=== PATIENT | male | born 1975 | race African-American/Black ===

== ENCOUNTER 2021-12-14 19:35 | Inpatient (IN) | payer MEDICAID, OTHER ==
[~2021-12-14] VITALS: Ht 172.7 cm; Wt 72.3 kg
[~2021-12-14 19:35] MED LIST: DICL100G51 TP; ESCI-8 PO; MELO-381 PO; QUET200T PO
[2021-12-14 20:02] LABS: BASOPHILS % (AUTO) 0.5 % (0.0-2.0); EOSINOPHILS % (AUTO) 0.2 % (1.0-6.0); HEMATOCRIT 38.6 % (41-53); HEMOGLOBIN 12.6 g/dL (13.5-17.5); LYMPHOCYTES # (AUTO) 2.4 K/uL (1.0-4.8); LYMPHOCYTES % (AUTO) 21.3 % (22.0-44.0); MEAN CORPUSCULAR HEMOGLOBIN 26.7 pg (26.0-34.0); MEAN CORPUSCULAR HGB CONC 32.7 G/dL (31.0-37.0); MEAN CORPUSCULAR VOLUME 82 fL (80-100); MONOCYTES # (AUTO) 1.1 K/uL (0.1-1.0); MONOCYTES % (AUTO) 9.5 % (2.0-9.0); NEUTROPHILS # (AUTO) 7.8 K/uL (1.8-7.7); NEUTROPHILS % (AUTO) 68.5 % (40.0-70.0); PLATELET COUNT (AUTO) 421 K/uL (150-450); RED BLOOD CELL COUNT(AUTO) 4.72 MIL/uL (4.50-5.90); RED CELL DISTRIBUTION WIDTH 13.9 % (11.5-14.5)
[2021-12-14 20:14] LABS: ANION GAP 3 mmol/L (8-16); CALCIUM, TOTAL 9.5 mg/dL (8.8-10.5); CARBON DIOXIDE 31 mmol/L (22-29); CHLORIDE 101 mmol/L (98-107); CREATININE 0.95 mg/dL (0.60-1.30); GLUCOSE,RANDOM 118 mg/dL (70-110); POTASSIUM 3.9 mmol/L (3.5-5.1); SODIUM SERUM 135 mmol/L (136-145); UREA NITROGEN, BLOOD 14 mg/dL (7-18)
[2021-12-14 20:15] LABS: GLOMERULAR FILTR. RATE CALC > 60 mL/min (>60)
[2021-12-14 20:19] LABS: ALANINE AMINOTRANSFERASE 22 U/L (12-78); ALBUMIN 3.8 g/dL (3.4-5.0); ALKALINE PHOSPHATASE 76 U/L (46-116); ASPARTATE AMINOTRANSFERASE 15 U/L (15-37); BILIRUBIN,TOTAL 0.4 mg/dL (0.1-1.0)
[2021-12-14] MEDS ORDERED: CHLO473M2 PO (20:55)
[2021-12-14] MEDS ORDERED: CLIN-26 PO (20:55)
[2021-12-14 23:35] LABS: COVID AG,FIA SOURCE NASOPHARYNGEAL
[2021-12-14] MEDS ORDERED: KETOROLAC TROMETHAMINE 30 MG/ML VIAL IM ONE (23:45)
[2021-12-15] MEDS ORDERED: HALOPERIDOL 5 MG TABLET PO PRN (01:00)
[2021-12-15] MEDS ORDERED: LORazepam 2 MG TABLET PO PRN (01:00)
[2021-12-15] MEDS ORDERED: ALBUTEROL SULFATE HFA 90 MCG/PUFF 8 GM INHALER IH PRN (06:15)
[2021-12-15] MEDS ORDERED: MAG HYDROX/AL HYDROX/SIMETH ES 30 ML SUSPENSION UDCUP PO PRN (06:15)
[2021-12-15] MEDS ORDERED: PETROLATUM,WHITE 28 GM JELLY TP PRN (06:15)
[2021-12-15] MEDS ORDERED: NICOTINE 14 MG/24 HOUR PATCH TD PRN (06:15)
[2021-12-15] MEDS ORDERED: DOCUSATE SODIUM 100 MG CAPSULE PO PRN (06:15)
[2021-12-15] MEDS ORDERED: ONDANSETRON HCL 4 MG TABLET PO PRN (06:15)
[2021-12-15] MEDS ORDERED: CloNIDine HCL 0.1 MG TABLET PO PRN (06:15)
[2021-12-15] MEDS ORDERED: ACETAMINOPHEN 325 MG TABLET PO PRN (06:15)
[2021-12-15] MEDS ORDERED: LOPERAMIDE HCL 2 MG CAPSULE PO PRN (06:15)
[2021-12-15] MEDS ORDERED: MAGNESIUM HYDROXIDE SUSPENSION 30 ML UDCUP PO PRN (06:15)
[2021-12-15] MEDS ORDERED: GuaiFENesin/D-METHORPHAN [SUGAR-FREE] 200-20MG/10 ML SYRUP UDCUP PO PRN (06:15)
[2021-12-15 09:18] VITALS: BP 130/70
[2021-12-15] MEDS: MELOXICAM 7.5 MG TABLET PO SCH (12:17)
[2021-12-15] MEDS: ESCITALOPRAM OXALATE 10 MG TABLET PO SCH (13:42)
[2021-12-15] MEDS: QUEtiapine FUMARATE 25 MG TABLET PO SCH (16:33)
[2021-12-15 20:14] VITALS: BP 111/75
[2021-12-16] MEDS: MELOXICAM 7.5 MG TABLET PO SCH (06:33)
[2021-12-16 06:34] VITALS: BP 123/89
[2021-12-16] MEDS: ESCITALOPRAM OXALATE 10 MG TABLET PO SCH (08:15)
[2021-12-16] MEDS: QUEtiapine FUMARATE 25 MG TABLET PO SCH ×2 (08:16→17:32)
[2021-12-16 08:26] VITALS: BP 113/61
[2021-12-16] MEDS: OLANZapine 5 MG TABLET PO SCH ×2 (11:02→20:40)
[2021-12-16 20:17] VITALS: BP 124/70
[2021-12-16] MEDS: ZOLPIDEM TARTRATE 10 MG TABLET PO PRN (20:40)
[2021-12-17] MEDS: MELOXICAM 7.5 MG TABLET PO SCH (07:00)
[2021-12-17 08:33] VITALS: BP 108/74
[2021-12-17] MEDS: ESCITALOPRAM OXALATE 10 MG TABLET PO SCH (09:01)
[2021-12-17] MEDS: QUEtiapine FUMARATE 25 MG TABLET PO SCH ×2 (09:01→17:00)
[2021-12-17] MEDS: OLANZapine 5 MG TABLET PO SCH ×2 (09:01→20:38)
[2021-12-17] MEDS: IBUPROFEN 400 MG TABLET PO PRN ×2 (12:17→20:38)
[2021-12-17 12:18] VITALS: BP 126/88
[2021-12-17 20:17] VITALS: BP 128/70
[2021-12-17] MEDS: ZOLPIDEM TARTRATE 10 MG TABLET PO PRN (20:38)
[2021-12-18] MEDS: MELOXICAM 7.5 MG TABLET PO SCH (06:38)
[2021-12-18] MEDS: ESCITALOPRAM OXALATE 10 MG TABLET PO SCH (08:20)
[2021-12-18] MEDS: OLANZapine 5 MG TABLET PO SCH (08:20)
[2021-12-18] MEDS: QUEtiapine FUMARATE 25 MG TABLET PO SCH ×2 (08:20→16:50)
[2021-12-18 08:36] VITALS: BP 115/56
[2021-12-18] MEDS ORDERED: MELO-381 PO (17:46)
[2021-12-18] MEDS ORDERED: ESCI-8 PO (17:46)
[2021-12-18] MEDS ORDERED: QUET25TA36 PO ×2 (17:46→17:54)
[2021-12-18] MEDS ORDERED: ESCI10 PO (17:54)
[2021-12-18] MEDS ORDERED: MELO-106 PO (17:54)
== END 2021-12-18 20:51 | disposition home or self-care (01) | DRG 753 ==
LOC: EMS 19:35 → B3A 12-15 03:53
PROVIDERS: ADMIT Psychiatry & Neurology Child & Adolescent Psychiatry; ATTEND Psychiatry & Neurology Child & Adolescent Psychiatry
DX: F31.4 Bipolar disorder, current episode depressed, severe, without psychotic features (principal); R45.851 Suicidal ideations; E87.1 Hypo-osmolality and hyponatremia; F17.200 Nicotine dependence, unspecified, uncomplicated; G89.29 Other chronic pain; M19.90 Unspecified osteoarthritis, unspecified site; Z96.649 Presence of unspecified artificial hip joint; D64.9 Anemia, unspecified; Z20.822 Contact with and (suspected) exposure to COVID-19; Z79.899 Other long term (current) drug therapy; Z91.030 Bee allergy status; Z91.018 Allergy to other foods
CPT/HCPCS: 80053; 85025; 87081; 99285; G0480; J1885